=== PATIENT | male | born 1975 | race Caucasian/White ===

== ENCOUNTER 2022-02-25 12:44 | Emergency (ER) | payer OTHER ==
[2022-02-25] MEDS ORDERED: HYDROCODON-ACE1 EAC4 PO (22:15)
[2022-03-02] MEDS ORDERED: ACYCLOVIR800 MG PO (00:40)
[2022-03-02] MEDS ORDERED: PAIN RELIEF1 EACH TP (00:40)
== END 2022-02-26 13:00 | disposition home or self-care (01) ==
LOC: ER1 12:44
DX: S92.002A Unspecified fracture of left calcaneus, initial encounter for closed fracture (principal); S80.12XA Contusion of left lower leg, initial encounter; M25.552 Pain in left hip; E78.5 Hyperlipidemia, unspecified; I10 Essential (primary) hypertension; F17.210 Nicotine dependence, cigarettes, uncomplicated; W19.XXXA Unspecified fall, initial encounter
CPT/HCPCS: 72131; 72192; 73502; 73610; 73700; 96374; 96375; 99284; J2270; J2405

== ENCOUNTER 2022-02-27 01:21 | Emergency (ER) | payer OTHER ==
[~2022-02-27 01:21] MED LIST: HYDROCODON-ACE1 EAC4 PO
[2022-03-02] MEDS ORDERED: ACYCLOVIR800 MG PO (00:40)
[2022-03-02] MEDS ORDERED: PAIN RELIEF1 EACH TP (00:40)
== END 2022-02-27 06:26 | disposition home or self-care (01) ==
LOC: ER1 01:21
DX: M79.605 Pain in left leg (principal); M54.50 Low back pain, unspecified; G89.29 Other chronic pain; F17.210 Nicotine dependence, cigarettes, uncomplicated; E78.5 Hyperlipidemia, unspecified; I10 Essential (primary) hypertension
CPT/HCPCS: 72131; 99283